=== PATIENT | male | born 1955 | race Caucasian/White ===

== ENCOUNTER 2020-08-16 09:57 | Outpatient (REF) | payer MEDICARE, OTHER, SELFPAY ==
[2020-08-16 10:46] LABS: MANUAL DIFF FLAG NO
[2020-08-16 11:04] LABS: Basophils Absolute Auto 0.1 X10*3/uL (0.0-0.2); Basophils Percent Auto 1.1 % (0-2); Eosinophils Absolute Auto 0.3 X10*3/uL (0.0-0.4); Eosinophils Percent Auto 5.8 % (0-4); Hematocrit 45.1 % (42-52); Imm Gran Abs Auto 0.03 X10*3/uL (0.00-0.03); Imm Gran Pct Auto 0.5 % (0.0-0.4); Lymphocytes Absolute Auto 1.4 X10*3/uL (1.2-4.9); Lymphocytes Percent Auto 25.1 % (20-40); Mean Corpuscular HGB Conc 33.3 g/dl (31.0-36.0); Mean Corpuscular Hemoglobin 29.6 pg (27.0-33.0); Mean Platelet Volume 10.9 fL (9.4-12.4); Monocytes Absolute Auto 0.7 X10*3/uL (0.1-1.2); Neutrophils Absolute Auto 3.1 X10*3/uL (2.0-8.3); Neutrophils Percent Auto 55.5 % (45-73); Platelet Count 243 X10*3/uL (160-400); Red Blood Count 5.07 X10*6/uL (4.60-5.80); Red Cell Distribution Width 12.5 % (11.0-16.0); White Blood Count 5.7 X10*3/uL (4.8-10.8)
[2020-08-16 11:10] LABS: Alanine Aminotransferase 26 U/L (0-40); Albumin Level 4.3 g/dL (3.5-5.0); Alkaline Phosphatase 74 U/L (39-117); Anion Gap 13 (12-20); Aspartate Amino Transferase 33 U/L (5-37); Bilirubin Total 0.2 mg/dL (0.0-1.0); Blood Urea Nitrogen 18 mg/dL (9-16); Carbon Dioxide 25 mmol/L (22-29); Chloride 107 mmol/L (96-108); Cholesterol 225 mg/dL; Estimated Glomerular Filt Rate > 60; Glucose Random 111 mg/dL (60-115); HDL Cholesterol 36 mg/dL; LDL Cholesterol Calculated 168 mg/dl; Potassium 4.9 mmol/L (3.3-5.1); Sodium 140 mmol/L (135-145); Total Protein 6.8 g/dL (6.5-8.0); Triglycerides 107 mg/dL
[2020-08-16 11:24] LABS: ~HepC Num1 0.06 S/CO (0.00-0.79); ~Hepatitis C Antibody Nonreactive (Nonreactive)
[2020-08-16 11:35] LABS: Thyroid Stimulating Hormone 2.05 uIU/mL (0.32-4.0)
== END 2020-08-16 09:58 | disposition home or self-care (01) ==
LOC: HO.LAB 09:57
PROVIDERS: PCP Internal Medicine; Visit Provider Internal Medicine
DX: R03.0 Elevated blood-pressure reading, without diagnosis of hypertension (principal); Z11.59 Encounter for screening for other viral diseases
CPT/HCPCS: 36415; 80053; 80061; 84443; 85025; 86803

== ENCOUNTER 2021-03-14 07:59 | Outpatient (REF) | payer MEDICARE, OTHER, SELFPAY ==
[2021-03-14 08:49] LABS: Basophils Absolute Auto 0.1 X10*3/uL (0.0-0.2); Basophils Percent Auto 0.9 % (0-2); Eosinophils Absolute Auto 0.3 X10*3/uL (0.0-0.4); Eosinophils Percent Auto 4.3 % (0-4); Hematocrit 46.1 % (42-52); Hemoglobin 15.6 g/dl (14.0-18.0); Imm Gran Abs Auto 0.02 X10*3/uL (0.00-0.03); Imm Gran Pct Auto 0.3 % (0.0-0.4); Lymphocytes Absolute Auto 1.7 X10*3/uL (1.2-4.9); Lymphocytes Percent Auto 26.2 % (20-40); MANUAL DIFF FLAG NO; Mean Corpuscular HGB Conc 33.8 g/dl (31.0-36.0); Mean Corpuscular Hemoglobin 29.5 pg (27.0-33.0); Mean Corpuscular Volume 87.3 fL (80-98); Mean Platelet Volume 10.9 fL (9.4-12.4); Monocytes Absolute Auto 0.6 X10*3/uL (0.1-1.2); Neutrophils Absolute Auto 3.9 X10*3/uL (2.0-8.3); Neutrophils Percent Auto 59.3 % (45-73); Platelet Count 239 X10*3/uL (160-400); Red Blood Count 5.28 X10*6/uL (4.60-5.80); Red Cell Distribution Width 12.1 % (11.0-16.0); White Blood Count 6.6 X10*3/uL (4.8-10.8)
[2021-03-14 09:34] LABS: Alanine Aminotransferase 19 U/L (0-40); Albumin Level 4.6 g/dL (3.5-5.0); Alkaline Phosphatase 74 U/L (39-117); Anion Gap 13 (12-20); Aspartate Amino Transferase 33 U/L (5-37); Bilirubin Total 0.7 mg/dL (0.0-1.0); Blood Urea Nitrogen 16 mg/dL (9-16); Calcium 9.6 mg/dL (8.4-10.2); Carbon Dioxide 26 mmol/L (22-29); Chloride 107 mmol/L (96-108); Cholesterol 224 mg/dL; Estimated Glomerular Filt Rate 59; Glucose Random 124 mg/dL (60-115); HDL Cholesterol 38 mg/dL; LDL Cholesterol Calculated 167 mg/dl; Potassium 4.9 mmol/L (3.3-5.1); Sodium 141 mmol/L (135-145); Total Protein 7.1 g/dL (6.5-8.0); Triglycerides 99 mg/dL
[2021-03-14 09:54] LABS: Thyroid Stimulating Hormone 2.08 uIU/mL (0.32-4.0)
== END 2021-03-14 08:00 | disposition home or self-care (01) ==
LOC: HO.LAB 07:59
PROVIDERS: PCP Internal Medicine; Visit Provider Internal Medicine
DX: R03.0 Elevated blood-pressure reading, without diagnosis of hypertension (principal)
CPT/HCPCS: 36415; 80053; 80061; 84443; 85025

== ENCOUNTER 2022-03-17 09:06 | Outpatient (REF) | payer MEDICARE, OTHER, SELFPAY ==
[2022-03-17 10:45] LABS: Alanine Aminotransferase 14 U/L (0-40); Albumin Level 4.5 g/dL (3.5-5.0); Alkaline Phosphatase 73 U/L (39-117); Anion Gap 18 (12-20); Aspartate Amino Transferase 26 U/L (5-37); Bilirubin Total 0.7 mg/dL (0.0-1.0); Blood Urea Nitrogen 22 mg/dL (9-16); Calcium 9.6 mg/dL (8.4-10.2); Carbon Dioxide 21 mmol/L (22-29); Chloride 108 mmol/L (96-108); Cholesterol 228 mg/dL; Estimated Glomerular Filt Rate > 60; Glucose Random 97 mg/dL (60-115); HDL Cholesterol 42 mg/dL; LDL Cholesterol Calculated 170 mg/dl; Potassium 4.7 mmol/L (3.3-5.1); Sodium 142 mmol/L (135-145); Triglycerides 80 mg/dL
[2022-03-17 10:46] LABS: Estimated Average Glucose 111 mg/dL; Hemoglobin A1c % 5.5 %
[2022-03-17 11:01] LABS: ~HepC Num1 0.08 S/CO (0.00-0.79); ~Hepatitis C Antibody Nonreactive (Nonreactive)
[2022-03-17 11:08] LABS: Vitamin D 25-OH Total 40.2 ng/mL (>30)
[2022-03-17 11:12] LABS: Vitamin B12 503 pg/mL (200-900)
== END 2022-03-17 09:07 | disposition home or self-care (01) ==
LOC: HO.LAB 09:06
PROVIDERS: PCP Internal Medicine; Visit Provider Internal Medicine
DX: E78.00 Pure hypercholesterolemia, unspecified (principal)
CPT/HCPCS: 36415; 80053; 80061; 82306; 82607; 83036; 86803

== ENCOUNTER 2023-03-25 09:36 | Outpatient (REF) | payer MEDICARE, OTHER, SELFPAY ==
[2023-03-25 09:52] LABS: MANUAL DIFF FLAG NO
[2023-03-25 09:58] LABS: Basophils Absolute Auto 0.1 X10*3/uL (0.0-0.2); Eosinophils Absolute Auto 0.4 X10*3/uL (0.0-0.4); Hematocrit 42.6 % (42.0-52.0); Hemoglobin 14.4 g/dl (14.0-18.0); Imm Gran Abs Auto 0.04 X10*3/uL (0.00-0.03); Imm Gran Pct Auto 0.6 % (0.0-0.4); Lymphocytes Absolute Auto 1.8 X10*3/uL (1.2-4.9); Lymphocytes Percent Auto 25.5 % (20-40); Mean Corpuscular HGB Conc 33.8 g/dl (31.0-36.0); Mean Corpuscular Hemoglobin 30.1 pg (27.0-33.0); Mean Corpuscular Volume 88.9 fL (80.0-98.0); Mean Platelet Volume 10.6 fL (9.4-12.4); Monocytes Absolute Auto 0.5 X10*3/uL (0.1-1.2); Monocytes Percent Auto 6.6 % (2-11); Neutrophils Absolute Auto 4.3 x10*3/uL (2.0-8.3); Neutrophils Percent Auto 60.3 % (45-73); Platelet Count 218 X10*3/uL (160-400); Red Blood Count 4.79 X10*6/uL (4.60-5.80); Red Cell Distribution Width 11.9 % (11.0-16.0); White Blood Count 7.1 X10*3/uL (4.8-10.8)
[2023-03-25 10:34] LABS: Alanine Aminotransferase 24 U/L (0-40); Albumin Level 4.1 g/dL (3.5-5.0); Alkaline Phosphatase 68 U/L (39-117); Anion Gap 10 (12-20); Aspartate Amino Transferase 29 U/L (5-37); Bilirubin Total 0.6 mg/dL (0.0-1.0); Blood Urea Nitrogen 17 mg/dL (9-16); Calcium 9.1 mg/dL (8.4-10.2); Carbon Dioxide 27 mmol/L (22-29); Chloride 108 mmol/L (96-108); Cholesterol 135 mg/dL (<200); Estimated Glomerular Filt Rate > 60; Glucose Random 114 mg/dL (60-115); HDL Cholesterol 40 mg/dL (>40); LDL Cholesterol Calculated 84 mg/dL (<100); Potassium 4.9 mmol/L (3.3-5.1); Sodium 140 mmol/L (135-145); Total Protein 6.6 g/dL (6.5-8.0); Triglycerides 59 mg/dL (<150)
== END 2023-03-25 09:37 | disposition home or self-care (01) ==
LOC: HO.LAB 09:36
PROVIDERS: PCP Internal Medicine; Visit Provider Internal Medicine
DX: I25.10 Atherosclerotic heart disease of native coronary artery without angina pectoris (principal)
CPT/HCPCS: 36415; 80053; 80061; 85025

== ENCOUNTER 2024-03-28 08:52 | Outpatient (REF) | payer MEDICARE, OTHER, SELFPAY ==
[2024-03-28 09:04] LABS: MANUAL DIFF FLAG NO
[2024-03-28 09:28] LABS: Basophils Absolute Auto 0.1 X10*3/uL (0.0-0.2); Basophils Percent Auto 0.7 % (0-2); Eosinophils Absolute Auto 0.4 X10*3/uL (0.0-0.4); Eosinophils Percent Auto 5.8 % (0-4); Hematocrit 42.2 % (42.0-52.0); Hemoglobin 14.2 g/dl (14.0-18.0); Imm Gran Abs Auto 0.03 X10*3/uL (0.00-0.03); Imm Gran Pct Auto 0.4 % (0.0-0.4); Lymphocytes Absolute Auto 1.6 X10*3/uL (1.2-4.9); Mean Corpuscular HGB Conc 33.6 g/dl (31.0-36.0); Mean Corpuscular Hemoglobin 29.6 pg (27.0-33.0); Mean Corpuscular Volume 88.1 fL (80.0-98.0); Mean Platelet Volume 11.7 fL (9.4-12.4); Monocytes Absolute Auto 0.6 X10*3/uL (0.1-1.2); Monocytes Percent Auto 7.9 % (2-11); Neutrophils Absolute Auto 4.3 x10*3/uL (2.0-8.3); Neutrophils Percent Auto 62.2 % (45-73); Platelet Count 222 X10*3/uL (160-400); Red Blood Count 4.79 X10*6/uL (4.60-5.80)
[2024-03-28 09:53] LABS: Alanine Aminotransferase 25 U/L (0-40); Albumin Level 4.1 g/dL (3.5-5.0); Alkaline Phosphatase 68 U/L (39-117); Anion Gap 12 (12-20); Aspartate Amino Transferase 35 U/L (5-37); Bilirubin Total 0.8 mg/dL (0.0-1.0); Blood Urea Nitrogen 26 mg/dL (9-16); Calcium 9.1 mg/dL (8.4-10.2); Carbon Dioxide 22 mmol/L (22-29); Chloride 113 mmol/L (96-108); Cholesterol 116 mg/dL (<200); Estimated Glomerular Filt Rate > 60; Glucose Random 123 mg/dL (60-115); HDL Cholesterol 32 mg/dL (>40); LDL Cholesterol Calculated 72 mg/dL (<100); Potassium 4.9 mmol/L (3.3-5.1); Sodium 142 mmol/L (135-145); Total Protein 6.8 g/dL (6.5-8.0); Triglycerides 60 mg/dL (<150)
[2024-03-28 10:09] LABS: Prostate Specific Antigen 6.12 ng/mL (<0.05-4.0)
== END 2024-03-28 08:53 | disposition home or self-care (01) ==
LOC: HO.LAB 08:52
PROVIDERS: PCP Internal Medicine; Visit Provider Internal Medicine
DX: I25.10 Atherosclerotic heart disease of native coronary artery without angina pectoris (principal); Z12.5 Encounter for screening for malignant neoplasm of prostate
CPT/HCPCS: 36415; 80053; 80061; 84153; 85025

== ENCOUNTER 2024-04-04 11:35 | Outpatient (REF) | payer MEDICARE, OTHER, SELFPAY ==
[2024-04-04 14:09] LABS: Estimated Average Glucose 123 mg/dL; Hemoglobin A1C 145.0606 umol/L; Hemoglobin A1c % 5.9 % (<6.0); Total Hemoglobin (HGBA1C) 3527.7349 umol/L
== END 2024-04-04 11:36 | disposition home or self-care (01) ==
LOC: HO.MANLDS 11:35
PROVIDERS: Visit Provider Internal Medicine
DX: R73.9 Hyperglycemia, unspecified (principal)
CPT/HCPCS: 36415; 83036

== ENCOUNTER 2025-04-10 10:18 | Outpatient (REF) | payer MEDICARE, OTHER, SELFPAY ==
[2025-04-10 10:35] LABS: MANUAL DIFF FLAG NO
[2025-04-10 11:09] LABS: Hematocrit 43.6 % (42.0-52.0); Hemoglobin 14.7 g/dl (14.0-18.0); Imm Gran Abs Auto 0.03 X10*3/uL (0.00-0.03); Imm Gran Pct Auto 0.4 % (0.0-0.4); Lymphocytes Absolute Auto 1.6 X10*3/uL (1.2-4.9); Mean Corpuscular HGB Conc 33.7 g/dl (31.0-36.0); Mean Corpuscular Hemoglobin 30.1 pg (27.0-33.0); Mean Corpuscular Volume 89.2 fL (80.0-98.0); NRBC Abs Auto 0.000 X10*3/uL (0.0-0.012); NRBC Pct Auto 0.0 /100WBC (0.0-0.2); Platelet Count 245 X10*3/uL (160-400); Red Blood Count 4.89 X10*6/uL (4.60-5.80); White Blood Count 7.2 X10*3/uL (4.8-10.8)
[2025-04-10 11:41] LABS: Alanine Aminotransferase 28 U/L (0-40); Albumin Level 4.6 g/dL (3.5-5.0); Alkaline Phosphatase 69 U/L (39-117); Anion Gap 9 (12-20); Aspartate Amino Transferase 35 U/L (5-37); Blood Urea Nitrogen 28 mg/dL (9-16); Calcium 9.5 mg/dL (8.4-10.2); Carbon Dioxide 27 mmol/L (22-29); Chloride 110 mmol/L (96-108); Cholesterol 120 mg/dL (<200); Estimated Glomerular Filt Rate 59; HDL Cholesterol 35 mg/dL (>40); Potassium 4.7 mmol/L (3.3-5.1); Sodium 141 mmol/L (135-145); Total Protein 6.8 g/dL (6.5-8.0); Triglycerides 77 mg/dL (<150)
[2025-04-10 12:04] LABS: Prostate Specific Antigen 6.16 ng/mL (<0.05-4.0)
--- OUTSIDE RECORDS SUMMARY | 2025-04-10 12:40 | XMS_ITS | Data Portability ---
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 MUST MEET 2 OUT OF 3 ELEMENTS: PROBLEMS, DATA OR RISK ELEMENT 1: PROBLEMS ADDRESSED 1 OR MORE CHRONIC ILLNESS WITH EXACERBATION OR 2 OR MORE STABLE CHRONIC ILLNESSES OR 1 UNDIAGNOSED NEW PROBLEM OR 1 ACUTE ILLNESS W/SYMPTOMS OR 1 ACUTE COMPLICATED INJURY ELEMENT 2: DATA MUST MEET 1 OF 3 CATEGORIES CATEGORY 1: REVIEW OF PRIOR EXTERNAL NOTES, REVIEW OF RESULTS, ORDERING OF EACH TEST, ASSESSMENT REQUIRING INDEPENDENT HISTORIAN OR CATEGORY 2: INDEPENDENT INTERPRETATION OF TESTS BY ANOTHER PHYSICIAN OR SPECIALIST OR CATEGORY 3: DISCUSSION OF MGT OR TEST INTERPRETATION W/EXTERNAL PHYSICIAN OR SPECIALIST ELEMENT 3: RISK RISK OF COMPLICATIONS AND/OR MORBIDITY OR MORTALITY OF PATIENT MANAGEMENT PROVIDER MUST THOROUGHLY DOCUMENT EACH ELEMENT THAT IS COVERED Not available 03/19/2021 10:26:50 09/23/2022 09/23/2022 [id number] [place] [id number]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 2 OUT OF 3 ELEMENTS: PROBLEMS, DATA OR RISK ELEMENT 1: PROBLEMS ADDRESSED 1 OR MORE CHRONIC ILLNESS WITH EXACERBATION OR 2 OR MORE STABLE CHRONIC ILLNESSES OR 1 UNDIAGNOSED NEW PROBLEM OR 1 ACUTE ILLNESS W/SYMPTOMS OR 1 ACUTE COMPLICATED INJURY ELEMENT 2: DATA MUST MEET 1 OF 3 CATEGORIES CATEGORY 1: REVIEW OF PRIOR EXTERNAL NOTES, REVIEW OF RESULTS, ORDERING OF EACH TEST, ASSESSMENT REQUIRING INDEPENDENT HISTORIAN OR CATEGORY 2: INDEPENDENT INTERPRETATION OF TESTS BY ANOTHER PHYSICIAN OR SPECIALIST OR CATEGORY 3: DISCUSSION OF MGT OR TEST INTERPRETATION W/EXTERNAL PHYSICIAN OR SPECIALIST ELEMENT 3: RISK RISK OF COMPLICATIONS AND/OR MORBIDITY OR MORTALITY OF PATIENT MANAGEMENT PROVIDER MUST THOROUGHLY DOCUMENT EACH ELEMENT THAT IS COVERED Not available 09/23/2022 10:42:46 Plan of Treatment Reminders Order Date Submit Date Provider Last Modified By Organization Details Last Modified Time Details Appointments MEDICARE ANNUAL WELLNESS 2024 11:00A M DR PETERSEN Not available Not available Not available Lab HbA1c (hemoglob in A1c), blood 2023 024 [facility], [address] [place] [address], [id number], 04/05/2024 11:20:29 lipid panel, blood 2020 [facility], [address] [place] [address], [id number], 03/19/2021 10:30:46 CMP, serum or plasma 2020 [facility], [address] [place] [address], [id number], 03/19/2021 10:30:46 HbA1c (hemoglob in A1c), blood 2020 021 [facility], [address] [place] [address], [id number], 03/17/2022 11:24:17 vitamin D, 25-hydrox y, total, serum 2020 [facility], [address] [place] [address], [address], 03/18/2022 11:18:30 vitamin B12, serum 2020 [facility], [address] [place] [address], [id number], 03/19/2021 10:30:46 hepatitis C panel, serum 2020 [facility], [address] [place] [address], [address], 03/19/2021 10:30:46 Referral None recorded. Procedures None recorded. Surgeries None recorded. Imaging CT, heart, w/o contrast, w/ coronary calcium score 2021 022 [email or web address] 10 [facility], [address] [place], [address], 03/25/2022 14:16:37 Medication Orders None recorded. Patient TargetsNo targets recorded. Patient Instructions Encounter Date Encounter Id Patient Instructions Last Modified By Organization Details Last Modified Time 04/04/2024 [id number] learning about high blood sugar Not available 04/04/2024 11:15:59 Reason for Referral None Reported. Results Created Date Observation Date Name Description Value Unit Range Abnormal Flag Note LastModifiedBy Organization Detail LastModifiedTime 04/01/20 22 04/01/2022 CT, heart , w/o contr ast, w/ coron daiana calci um score No observ ation record ed. [email or web address] [facility] [address] [place], [address], 09/23/2022 10:33:47 Result Notes None recorded. Problems Name Problem SNOMED Code Status Onset Date Resolution Date Notes Provider Name and Address Organization Details Recorded Time Hyperchole sterolemia 21322983 [facility] 8 11:59:07 Prostate specific antigen above reference range 964074809 Active 2017 Noah Petersen DO [address] [place] [address], [address], [facility] 8 11:46:54 Adenocarci noma of prostate 784798269 Active 2018 Noah Petersen DO [address] [place] [address], [address], [facility] 9 10:25:56 Blood pressure above reference range 29123607 Active 2018 Noah Petersen DO [address] [place] [address], [address], [facility] 9 10:26:21 Calcific coronary arterioscl erosis 83959601 Active 2022 Noah Petersen, DO [address] [place] [address], [address], [facility] Internal [facility] 3 10:34:50 Onychomyco sis of toenails 198143660 Active 2022 Noah Petersen, DO [address] [place] [address], [phone], [facility] Internal [facility] 3 16:35:06 Hyperglyce khris 68477576 Active 2023 Noah Petersen, DO [address] [place] [address], [address], [facility] 4 11:15:07 COVID-19 998629698 Active 2024 Noah Petersen DO [address] [place] [address], [address], [facility] 5 15:16:38 Problem Notes None recorded. Procedures Surgical History Date Name Laterality Status Provider Name and Address Organization Details Recorded Time 3 Colonoscopy completed Gabbi [facility] 01/19/2018 11:01:53 7 Colonoscopy completed Gabbi [facility] 01/19/2018 11:02:29 Imaging Results None recorded. Procedure Notes None recorded. Medical Equipment None Reported. Allergies Allergen ID Allergen Name Allergen Category Reaction Reaction Severity Criticality Documentation Date Start Date Code Code System Note Provider Name and Address Organization Details Recorded Time 2909 Cipro medicatio n Not available Not available Not available 07/29/2018 51562 3 RxNorm not sure Noah PetersenDO [address] [place] [address], [address], [facility] 9 10:20:18 2910 gentamici n medicatio n Not available Not available Not available 07/29/2018 90465 50 RxNorm not sure Noah Petersen DO [address] [place] [address], [address], [facility] 9 10:21:42 2911 Substance with sulfonami de structure and antibacte rial mechanism of action (substanc e) medicatio n rash Not available Not available 07/29/2018 41620 8003 SNOMED Noah Petersen, DO [address] [place], [address], [facility] 9 10:20:09 406 amoxicill in medicatio n hives Not available Not available 07/21/2017 723 RxNorm Gabbi kilpatrick, [facility] 8 11:59:00 Medications Name Sig Start Date Stop Date Status Note LastModified by Organization Details LastModified Time atorvastatin 80 mg tablet active Not Available Not Available Not Available carvedilol 12.5 mg tablet active Not Available Not Available Not Available clindamycin HCl 300 mg capsule 08/21 completed Not Available Not Available Not Available azithromycin 250 mg tablet 03/24 completed Not Available Not Available Not Available ibuprofen 800 mg tablet 08/21 completed Not Available Not Available Not Available hydrochloroth iazide 50 mg tablet Take 1 tablet every day by oral route for 30 days. 02/07 completed Not Available Not Available Not Available Aspir-Low 81 mg tablet,delaye d release Take 1 tablet every day by oral route. 03/19 completed Not Available Not Available Not Available ciprofloxacin 500 mg tablet 07/29 completed Not Available Not Available Not Available sulfamethoxaz ole 800 mg-trimethopr im 160 mg tablet 07/29 completed Not Available Not Available Not Available terbinafine HCl 250 mg tablet Take 1 tablet every day by oral route for 30 days. 03/30 completed Not Available Not Available Not Available lorazepam 0.5 mg tablet active Not Available Not Available No t Available lisinopril 10 mg tablet active Not Available Not Available No t Available nitroglycerin 0.4 mg sublingual tablet active Not Available Not Available Not Available lorazepam 1 mg tablet 03/19 completed Not Available Not Available Not Available methylprednis olone 4 mg tablets in a dose pack 10/05 completed Not Available Not Available Not Available Asprin Ec Low Dose 81 mg tablet,delaye d release Take 1 tablet every day by oral route. active Not Available Not Available No t Available chlorhexidine gluconate 0.12 % mouthwash 03/24 completed Not Available Not Available Not Available Paxlovid 300 mg (150 mg x 2)-100 mg tablets in a dose pack Take 1 dose pk by oral route for 5 days. 2024 active Not Available Not Available Not Avai lable Vitals Date Recorded Body height Body mass index (BMI) Body weight Heart rate Oxygen saturation Systolic And Diastolic Provider Name and Address Organization Details Last Updated DateTime 3 170.82 cm 26.7 kg/m2 70778.8 9 g 54 /min 97 % 120/70 mm[Hg] Meche Solitario [facility] 3 10:16:45 Date Recorded Body height Body mass index (BMI) Body weight Heart rate Oxygen saturation Systolic And Diastolic Provider Name and Address Organization Details Last Updated DateTime 1 170.82 cm 27.7 kg/m2 50668.1 6 g 91 /min 97 % 150/94 mm[Hg] Noah Petersen, [address] [place], [address] [facility] 1 10:04:35 Date Recorded Body weight Body mass index (BMI) Body height Heart rate Oxygen saturation Systolic And Diastolic Provider Name and Address Organization Details Last Updated DateTime 2 69537.0 7 g 27 kg/m2 170.82 cm 71 /min 97 % 154/90 mm[Hg] Noah Petersen DO [address] [place], [address] 7[facility] 2 09:55:10 Date Recorded Body height Body mass index (BMI) Body weight Heart rate Oxygen saturation Systolic And Diastolic Provider Name and Address Organization Details Last Updated DateTime 3 170.82 cm 27.6 kg/m2 98107.6 5 g 63 /min 98 % 121/73 mm[Hg] Aissatou Huizar [facility] 3 10:56:48 Date Recorded Body height Body mass index (BMI) Body weight Heart rate Oxygen saturation Systolic And Diastolic Provider Name and Address Organization Details Last Updated DateTime 4 170.18 cm 27.7 kg/m2 64328.8 5 g 54 /min 96 % 110/80 mm[Hg] Meche Solitario [facility] 4 10:51:32 Social History Question Answer Notes LastModified by Organizat ion Details LastModified Time Tobacco Smoking Status Never Smoker Not Available [facility] 03/19/2020 03:36:24 What Was The Date Of Your Most Recent Tobacco Screening? 04/04/2024 [email or web address] Information not available 04/04/2024 Sex: Unknown Functional Status None recorded. Mental Status None recorded. Family History Nothing Reported. Medical History No medical history recorded. Immunizations Vaccine Type Date Status Note Provider Nam e and Address Organization Details Recorded Time Influenza, split virus, quadrivalent, preservative 03/11/20 21 completed Noah Petersen DO [address] [place] [address], [address], [facility] 03/19/2021 10:03:03 COVID-19, mRNA, LNP-S, PF, 30 mcg/0.3 mL dose 02/21/20 21 completed Noah Petersen DO [address] [place] [address], [address], [facility] 03/19/2021 10:03:19 pneumococcal polysaccharide PPV23 01/16/20 21 completed Noah Petersen DO [address] [place] [address], [address], [facility] Internal [facility] 03/19/2021 10:06:34 Pneumococcal conjugate PCV 13 01/15/20 20 completed Aissatou Gencarelle shonna [facility] 03/19/2021 09:50:54 COVID-19, mRNA, LNP-S, PF, 30 mcg/0.3 mL dose 08/14/19 21 completed Aissatou Gencarelle null [facility] 03/19/2021 09:50:54 COVID-19, mRNA, LNP-S, PF, 30 mcg/0.3 mL dose 07/25/19 21 completed Aissatou Gencarelle shonna [facility] 03/19/2021 09:50:54 Tdap 01/15/20 20 completed Noah Petersen DO [address] [place] [address], [address], [facility] 08/21/2020 09:42:26 zoster, unspecified formulation 01/24/20 20 completed Aissatou Gencarelle null, [facility] Internal [facility] 03/19/2021 09:50:54 zoster, unspecified formulation 04/17/20 20 completed Aissatou Gencarelle null, [facility] Internal [facility] 03/19/2021 09:50:54 Influenza, split virus, quadrivalent, preservative 01/08/20 20 completed Aissatou Gencarelle null, [facility] Internal [facility] 03/19/2021 09:50:54 Past Encounters Encounter ID Performer Location Encounter Start Date Encounter Closed Date Diagnosis/Indication Diagnosis SNOMED-CT Code Diagnosis ICD10 Code Diagnosis IMO Codes Diagnosis Note [id number] Noah Petersen [facility] [address],[place] [address] 10/05/2017 09:43:08 10/05/2017 10:50:26 Adult health examination 368143561 Z00.00 Active or passive immunization 211677755 Z23 Hypercholesterolemia 136 99765 E78.00 will repeat lab in early jan and review Prostate s pecific antigen above reference range 344825767 R97.20 will repeat test in several months [id number] Noah Petersen [facility] [address],[place] [address] 01/19/2018 10:35:04 01/19/2018 12:04:27 Hypercholesterolemia 59212161 E78.00 discussed in detail the LDL is sown to 193 from 220 told will need to treat if going up agin in july Prostate s pecific antigen above reference range 565841033 R97.[address] soto [id number] Noah Petersen [facility] [address] [place] [address],[place] [address] 05/03/2018 11:44:52 05/06/2018 08:57:14 Hepatitis C screening 833693689 Z11.59 insur request Prostate s pecific antigen above reference range 924189993 R97.20 after much discussion , we will have him get another opinion per his request and see if this is truly needed . [id number] Noah Petersen [facility] Internal [facility] [address] [facility] [place] [address] 07/29/2018 09:57:52 07/29/2018 10:45:56 Prostate specific antigen above reference range 254750925 R97.20 now with adenocarc of prostate Adenocarci noma of prostate 493140118 C61 will cont to follow per urol Blood pres sure above reference range 17969894 R03.0 will follow with home unit ane report back in months time Hypercholesterolemia 136 23378 E78.00 discussed in detail the LDL is sown to 193 from 220 told will need to treat if going up agin in july Noah Petersen [facility] [address] [facility] [place], [place] [address] 02/07/2019 08:46:47 02/07/2019 10:25:19 Prostate specific antigen above reference range 360037458 R97.20 now with adenocarc of prostate Hepatitis C screening 41 6617207 Z11.59 insur request Blood pres sure above reference range 34990199 R03.0 will follow with home unit ane report back in 6 months time overall has been excellent [id number] Noah Petersen [facility] Internal [facility] [address] [facility] [place] [address] 01/10/2020 09:33:07 01/10/2020 10:21:54 Blood pressure above reference range 38341571 R03.0 will follow with home unit ane report back in 6 months time overall has been excellent Hypercholesterolemia 136 53163 E78.00 discussed in detail the LDL is sown to 193 from 220 told will need to treat if going up agin in july Hepatitis C screening 41 7782097 Z11.59 insur request Adenocarci noma of prostate 707819028 C61 will cont to follow per urol [id number] Noah Petersen [facility] Internal [facility] [address] [facility] [place] [address] 08/21/2020 09:34:14 08/21/2020 11:01:35 Blood pressure above reference range 65745864 R03.0 home bps are all excellent excellent now here will cont to follow and no evid of actual htn Hypercholesterolemia 136 38896 E78.00 discussed in detail the LDL is down to 168 then 193 from 220 told will need to treat if going up agin in [id number] Noah Petersen [facility] [address] [facility] [address] 03/19/2021 09:50:46 03/19/2021 11:22:05 Hypercholesterolemia 12141383 E78.00 discussed in detail the LDL is down to 168 then 193 from 220 told will need to treat if going up agin in july Adenocarci noma of prostate 987074045 C61 will cont to follow per urol Blood pres sure above reference range 49759298 R03.0 will be checking bp at home and get back to us the numbers in 3 weeks to document normal resultsin the meantime he will watch his diet and salt and cont to exercise daily we will see him in one year Dysplastic nevus of skin 545790336 D22.9 will be seeing dermatolog y soon [id number] Noah Petersen [facility] [address] [facility] [address] 03/24/2022 09:46:31 03/24/2022 10:46:37 Active or passive immunization 064759752 Z23 patient advised he is due for flu shot Adult heal th examination 112361379 Z00.00 Adenocarci noma of prostate 671939804 C61 will cont to follow per urol Advance care planning 71 7031953 Z71.89 [facility] [id number] [facility] [address] [facility] [address] 09/23/2022 10:02:27 09/23/2022 11:49:33 Calcific coronary arteriosclerosis 16640755 I25.[address] Blood pres sure above reference range 75378551 R03.0 doing wellnew meds are workingwil l be checking bp at home and get back to us the numbers in 3 weeks to document normal resultsin the meantime he will watch his diet and salt and cont to exercise daily Hypercholesterolemia 136 42848 E78.00 discussed in detail the LDL is down to 51 from 168 then 193 from 220 Adenocarci noma of prostate 271188540 C61 will cont to follow per urol [id number] Noah Petersen [facility] Medicine [address] [facility],[place] [address] 03/30/2023 10:46:40 03/30/2023 11:48:02 Active or passive immunization 236566753 Z23 patient advised he is due for flu shot and rsv Adult heal th examination 811860970 Z00.00 doing great follows with urology and cardiology Hypercholesterolemia 136 36082 E78.00 discussed in detail the LDL is down to 84 51 from 168 then 193 from 220 Adenocarci noma of prostate 657171950 C61 will cont to follow per urol [id number] Noah Petersen [facility] Medicine [address] [facility] [place] [address] 04/04/2024 10:45:38 04/04/2024 11:25:42 Hypercholesterolemia 22520670 E78.00 discussed in detail the LDL is down to 84 51 from 168 then 193 from 220 Adult heal th examination 155752613 Z00.00 doing great follows with urology and cardiology Hyperglycemia 16373349 R 73.9 Health Concerns Section Related Observation LastModified by Organization Detai ls LastModified Time None Recorded Concern Status LastModified by Organization Details LastModified Time None Recorded Advance Directives Directive None Recorded Payers Insurance Date Sequence Insurance Name Policy Number 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 Guarantor Name 03/29/2024 1 [facility] [place] [id number] Naun Back [id number] Naun Back 04/01/2024 2 FOR LIFE ( - MEDICARE SUPPLEMENT) Naun Back [id number] Naun Back 04/04/2025 1 [place] [employer] [employer] Naun Back [id number] Naun Back Notes Date Note Type Note Provider Name a nd Address Organization Details Recorded Time 1 text/html ROS as noted in the HPI here for rechk and is doing well overallstates has been walking several times a weekonly getting up once at night to urinatesno cp no sobwe be seeing dr barone for psa check and pro ca evalnote that his dad had some issues with sugar Noah Jalen Petersen DO [address] [place], [address], [facility] 03/19/2021 10:30:55 2 text/html Annual WellnessReported by PatientSocial/Behavio ral HistoryFor diet and nutrition, patient reportshealthy diet. For fracture risk, patient reportsno history of fractures,no recent explained fracture,no sudden unexplained fractures, andno previous musculoskeletal injuries. For physical activity, patient reportsexercises on a regular basis,recent increase in physical activity, andgood physical condition. For additional lifestyle factors, patient reportsno tobacco use,no alcohol intake, andstopped drinking alcohol.Mental Status:For depression risk, patient reportsnever feels sad, empty, or tearful,no loss of interest in activities,no significant changes in weight,no sleep disturbances or insomnia,no agitation,no loss of energy,no feelings of worthlessness or guilt,no thoughts of suicide,no history of depression, andno history of mood disorders.Functional AbilityFor hearing, patient reportsno loss of hearing. For vision, patient reportsno vision problems.ROS as noted in the HPI The patient denies recent falls or recurrent falls. Denies instability, weakness, abnormal gait, or difficulties with movement. The patient wears correct, supportive shoes and is not otherwise severely visually impaired. The patient is full weight bearing and if using the assistance of a cane or walker feels supported and stable with the use of such devices. All medical conditions have been taken into account that may pose a risk for the patient for falls. Home yevgeniy, carpets and/or rugs do not pose a challenge for the patient. The patient has been educated about the use of vitamin D supplementation for bone health and prevention of hypotensive episodes that may increase risk for fall. 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 For fracture risk, patient reportsno history of fractures,no recent explained fracture,no sudden unexplained fractures, andno previous musculoskeletal injuries. For physical activity, patient reportsexercises on a regular basis,recent increase in physical activity, andgood physical condition. For additional lifestyle factors, patient reportsno tobacco use,no alcohol intake, andstopped drinking alcohol.Mental Status:For depression risk, patient reportsnever feels sad, empty, or tearful,no loss of interest in activities,no significant changes in weight,no sleep disturbances or insomnia,no agitation,no loss of energy,no feelings of worthlessness or guilt,no thoughts of suicide,no history of depression, andno history of mood disorders.Functional AbilityFor hearing, patient reportsno loss of hearing. For vision, patient reportsno vision problems.sleep is okno cp no sobappetite goodgolfs almost daily uses rowing machineROS as noted in the HPI Noah Petersen DO [address] [place], [id number], [facility] 03/30/2023 12:48:32 4 text/html ROS as noted in the HPI here for rechk and doing well overallno major issues getting active eval by urol \we noticed afbgluc is 123 Noah Petersen DO [address] [place], [id number], [facility] 04/04/2024 11:23:12
== END 2025-04-10 10:19 | disposition home or self-care (01) ==
LOC: HO.LAB 10:18
PROVIDERS: PCP Internal Medicine; Visit Provider Internal Medicine
DX: Z12.5 Encounter for screening for malignant neoplasm of prostate (principal); E78.00 Pure hypercholesterolemia, unspecified; R73.9 Hyperglycemia, unspecified
CPT/HCPCS: 36415; 80053; 80061; 83036; 84153; 85025